=== PATIENT | male | born 1970 | race African-American/Black ===

== ENCOUNTER 2021-01-22 09:41 | Emergency (ER) | payer MEDICAID, OTHER ==
[~2021-01-22] VITALS: Ht 193 cm; Wt 129.0 kg
[2021-01-22] MEDS ORDERED: HYDR25TA MT (11:26)
[2021-01-22] MEDS ORDERED: CEPH500C2 MT (11:26)
[2021-01-22 11:50] VITALS: BP 166/112
== END 2021-01-22 11:53 | disposition home or self-care (01) ==
LOC: ER 09:41
DX: H66.91 Otitis media, unspecified, right ear (principal); T30.0 Burn of unspecified body region, unspecified degree; T79.9XXA Unspecified early complication of trauma, initial encounter; N50.89 Other specified disorders of the male genital organs; I10 Essential (primary) hypertension; Z91.018 Allergy to other foods; Z98.890 Other specified postprocedural states
CPT/HCPCS: 71045; 73130; 99284; Z7610

== ENCOUNTER 2022-02-23 11:48 | Emergency (ER) | payer MEDICAID, OTHER ==
[~2022-02-23] VITALS: Ht 193 cm; Wt 127.0 kg
[~2022-02-23 11:48] MED LIST: CEPH500C2 MT; HYDR25TA MT
[2022-02-23 12:00] VITALS: BP 144/111
== END 2022-02-23 17:47 | disposition left against medical advice (07) ==
LOC: ER 11:48
DX: Z53.21 Procedure and treatment not carried out due to patient leaving prior to being seen by health care provider (principal)

== ENCOUNTER 2023-11-25 11:24 | Inpatient (IN) | payer MEDICAID, OTHER ==
[~2023-11-25] VITALS: Ht 188 cm; Wt 129.3 kg
[2023-11-25] MEDS: HYDRALAZINE 20MG/ML VIAL IV ONE ×2 (12:14→13:17)
[2023-11-25 12:24] LABS: BASOPHILS % 0.7 % (0.0-2.0); HEMATOCRIT. 43.5 % (42.0-52.0); HEMOGLOBIN. 14.8 g/dL (14.0-18.0); LYMPHOCYTES % 38.9 % (20.0-50.0); MEAN CORPUSCULAR HEMOGLOBIN 28.9 pg (28.0-32.0); MEAN CORPUSCULAR HGB CONC 34.1 g/dL (31.0-37.0); MEAN CORPUSCULAR VOLUME 84.6 fL (80.0-94.0); MEAN PLATELET VOLUME 7.9 fl (7.4-10.4); MONOCYTES % 6.2 % (2.0-8.0); NEUTROPHILS % 49.2 % (40.0-76.0); PLATELET 212 x1000/uL (130-400); RED BLOOD CELL COUNT 5.13 mill/uL (4.7-6.1); RED CELL DISTRIBUTION WIDTH 15.1 % (11.6-14.6); WHITE BLOOD COUNT 5.3 x1000/uL (4.5-11.0)
[2023-11-25 12:51] LABS: ALANINE AMINOTRANSFERASE 42 IU/L (10-49); ALBUMIN 4.9 g/dL (3.2-4.8); ASPARTATE AMINOTRANSFERASE 32 IU/L (<34); BILIRUBIN TOTAL 0.6 mg/dL (0.1-1.0); CALCIUM 9.3 mg/dL (8.7-10.4); CARBON DIOXIDE 26 mEq/L (21-32); CHLORIDE 106 mEq/L (98-107); CREATININE 1.3 mg/dL (0.6-1.3); GLUCOSE 105 mg/dL (70-105); POTASSIUM 4.1 mEq/L (3.5-5.1); PROTEIN TOTAL 8.4 g/dL (6.0-8.3); SODIUM 139 mEq/L (136-145); TROPONIN I HIGH SENSITIVITY 31 ng/L (3.0-53); UREA NITROGEN BLOOD 12 mg/dL (9-23)
[2023-11-25] MEDS ORDERED: MAGNESIUM/ALUMINUM HYDROXIDE/SIMETHICONE 30ML UDC PO PRN (16:45)
[2023-11-25] MEDS ORDERED: ACETAMINOPHEN 325MG TABLET PO PRN (16:45)
[2023-11-25] MEDS ORDERED: ONDANSETRON HCL 4MG/2ML INJ IV PRN (16:45)
[2023-11-25] MEDS ORDERED: IPRATROPIUM/ALBUTEROL 0.5-3(2.5)MG/3ML NEB HHN PRN (16:45)
[2023-11-25] MEDS: LOSARTAN 25 MG TABLET PO SCH (17:09)
[2023-11-25] MEDS ORDERED: LORAZEPAM 2MG/ML INJ IV PRN (18:15)
[2023-11-25] MEDS: ENOXAPARIN 30MG/0.3ML SYR SUBCUT SCH (18:38)
[2023-11-25] MEDS: CLONIDINE 0.1MG TABLET PO PRN (22:51)
[2023-11-25 23:37] VITALS: BP 135/84; PULSE 89; RESP 20; TEMP 97.5
[2023-11-26] VITALS: BP 135/84; PULSE 91; RESP 16; RESP 19; TEMP 97.5
[2023-11-26 03:17] LABS: BASOPHILS % 0.9 % (0.0-2.0); EOSINOPHILS % 4.6 % (0.0-5.0); HEMATOCRIT. 41.8 % (42.0-52.0); HEMOGLOBIN. 14.5 g/dL (14.0-18.0); LYMPHOCYTES % 37.4 % (20.0-50.0); MEAN CORPUSCULAR HGB CONC 34.8 g/dL (31.0-37.0); MEAN CORPUSCULAR VOLUME 83.5 fL (80.0-94.0); MEAN PLATELET VOLUME 8.1 fl (7.4-10.4); MONOCYTES % 7.4 % (2.0-8.0); NEUTROPHILS % 49.7 % (40.0-76.0); PLATELET 181 x1000/uL (130-400); RED BLOOD CELL COUNT 5.01 mill/uL (4.7-6.1); WHITE BLOOD COUNT 5.3 x1000/uL (4.5-11.0)
[2023-11-26 03:31] LABS: CREATINE KINASE MB FRACTION 2.6 ng/mL (0.5-3.6)
[2023-11-26 03:33] LABS: ALANINE AMINOTRANSFERASE 37 IU/L (10-49); ASPARTATE AMINOTRANSFERASE 31 IU/L (<34); BILIRUBIN TOTAL 0.8 mg/dL (0.1-1.0); CALCIUM 8.5 mg/dL (8.7-10.4); CARBON DIOXIDE 26 mEq/L (21-32); CHLORIDE 105 mEq/L (98-107); CHOLESTEROL 264 mg/dL (<200); CREATININE 1.1 mg/dL (0.6-1.3); GLUCOSE 115 mg/dL (70-105); HDL CHOLESTEROL 53 mg/dL (>55); LDL CHOLESTEROL 134 mg/dL (5-100); PROTEIN TOTAL 6.7 g/dL (6.0-8.3); SODIUM 138 mEq/L (136-145); T4 FREE 1.19 ng/dL (0.89-1.76); THYROID STIMULATING HORMONE 0.77 uIU/mL (0.55-4.78); TRIGLYCERIDE 330 mg/dL (0-150); UREA NITROGEN BLOOD 12 mg/dL (9-23)
[2023-11-26 04:00] VITALS: BP_SYST 122; BP_SYST 128; BP_SYST 131; BP_DIAS 82; BP_DIAS 87; BP_DIAS 93; PULSE 89; RESP 20; TEMP 98.2
[2023-11-26 08:00] VITALS: BP 102/63; PULSE 82; RESP 20; TEMP 98.7
[2023-11-26 10:23] LABS: IRON 118 ug/dL (65-175); TOTAL IRON BINDING CAPACITY 284 ug/dl (250-425)
[2023-11-26] MEDS ORDERED: FAMO-135 MT (11:46)
[2023-11-26] MEDS ORDERED: AMLO5TAB88 MT (11:46)
[2023-11-26] MEDS ORDERED: ATOR20TA MT (11:46)
[2023-11-26 12:00] VITALS: BP_SYST 131; BP_SYST 133; BP_SYST 142; BP_DIAS 77; BP_DIAS 85; BP_DIAS 88; PULSE 78; PULSE 81; PULSE 91; RESP 20; TEMP 98.7
[2023-11-26 12:13] VITALS: BP 131/85; PULSE 78; TEMP 98.7; O2SAT 97
[2023-11-26 16:17] LABS: FOLIC ACID (FOLATE) SERUM > 20.00 ng/mL (>5.38); VITAMIN B12 SERUM 521 pg/mL (211-911)
== END 2023-11-26 13:45 | disposition home or self-care (01) | DRG 243 ==
LOC: ER 11:24 → 7WST 13:21 → EDBEDREQ 13:26 → EDBEDREQTM 13:26 → 7WST 11-26 00:22
PROVIDERS: ADMIT Internal Medicine; ATTEND Internal Medicine
DX: K21.9 Gastro-esophageal reflux disease without esophagitis (principal); E78.5 Hyperlipidemia, unspecified; F17.200 Nicotine dependence, unspecified, uncomplicated; I10 Essential (primary) hypertension; R07.89 Other chest pain; Z86.73 Personal history of transient ischemic attack (TIA), and cerebral infarction without residual deficits; Z88.8 Allergy status to other drugs, medicaments and biological substances; Z79.899 Other long term (current) drug therapy
CPT/HCPCS: 36415; 71045; 80053; 80061; 82550; 82553; 82607; 82746; 83540; 83550; 83735; 83880; 84439; 84443; 84484; 85025; 85379; 93005; 93306; 93880; 99285; J0360; J1650

== ENCOUNTER 2024-10-09 17:28 | Emergency (ER) | payer OTHER ==
[~2024-10-09] VITALS: Ht 182.9 cm; Wt 127.0 kg
[~2024-10-09 17:28] MED LIST changes: +AMLO5TAB88 MT; +ATOR20TA MT; +FAMO-135 MT; -HYDR25TA MT
[2024-10-09 17:30] VITALS: TEMP 36.7; O2SAT 98
[2024-10-09] MEDS ORDERED: IBUP-2029 MT (22:18)
[2024-10-09 22:52] VITALS: BP 142/76; PULSE 89; RESP 18; O2SAT 97
== END 2024-10-09 22:53 | disposition home or self-care (01) ==
LOC: ER 17:28
DX: S06.9XAA Unspecified intracranial injury with loss of consciousness status unknown, initial encounter (principal); F10.129 Alcohol abuse with intoxication, unspecified; M25.562 Pain in left knee; I10 Essential (primary) hypertension; F10.10 Alcohol abuse, uncomplicated; Z79.899 Other long term (current) drug therapy; Z91.018 Allergy to other foods; Y08.89XA Assault by other specified means, initial encounter; Y93.89 Activity, other specified; Y92.89 Other specified places as the place of occurrence of the external cause; Y99.8 Other external cause status
CPT/HCPCS: 73562; 99284